=== PATIENT | female | born 1985 | race Caucasian/White ===

== ENCOUNTER 2024-03-06 12:26 | Inpatient (IN) | payer MEDICAID ==
[~2024-03-06] VITALS: Ht 165.1 cm; Wt 79.8 kg
[2024-03-06] MEDS: SODIUM CHLORIDE 0.9% 500 ML IVB ONE (13:00)
[2024-03-06 13:18] LABS: Urine Bacteria None Seen /hpf (None Seen)
[2024-03-06 13:20] LABS: Basophils # (auto) 0.1 10 ^3/uL (0-0.2); Basophils % (auto) 0.7 % (0.0-2.0); Eosinophils # (auto) 0.1 10 ^3/uL (0-0.8); Eosinophils % (auto) 0.8 % (0.0-7.0); Hematocrit 41.2 % (36.0-46.0); Hemoglobin 14.3 g/dL (12.2-16.2); Lymphocytes # (auto) 2.6 10 ^3/uL (0.4-5.4); Lymphocytes % (auto) 28.9 % (10.0-50.0); Mean Corpuscular Hemoglobin 33.9 pg (28.0-32.0); Mean Corpuscular Hgb Conc. 34.6 g/dL (32.0-36.0); Mean Corpuscular Volume 97.9 fL (80.0-100.0); Monocytes # (auto) 0.7 10 ^3/uL (0-1.3); Monocytes % (auto) 8.3 % (0.0-12.0); Neutrophils # (auto) 5.5 10 ^3/uL (1.6-8.6); Neutrophils % (auto) 61.3 % (37.0-80.0); Platelet Count (auto) 296 10^3/uL (140-450); Red Blood Cells 4.21 10^6/uL (4.0-5.20); Red Cell Distribution Width 12.8 % (11.8-14.3); White Blood Cell 8.9 10^3/uL (4.4-10.8)
[2024-03-06 13:34] LABS: Urine Blood Negative /uL (Negative); Urine Clarity Clear (Clear); Urine Color Light-Yellow (Yellow); Urine Protein, UAD Negative (Negative); Urine Specific Gravity 1.017 (1.001-1.035); Urine Urobilinogen Normal (Negative); Urine WBC 1 /hpf (0 - 5)
[2024-03-06 13:36] LABS: Alanine Aminotransferase 17 U/L (7-40); Albumin 4.7 g/dL (3.2-4.8); Alkaline Phosphatase 88 U/L (46-116); Anion Gap 6 (5-15); Aspartate Aminotransferase 22 U/L (13-40); BUN/Creatinine Ratio 16.7 (10.0-20.0); Blood Urea Nitrogen 13 mg/dL (9-23); Calcium 9.8 mg/dL (8.7-10.4); Carbon Dioxide 24 mmol/L (20-31); Chloride 112 mmol/L (98-107); Glucose 98 mg/dL (74-106); Potassium 4.1 mmol/L (3.5-5.1); Sodium 142 mmol/L (136-145)
[2024-03-06 13:37] LABS: Bilirubin, Total 0.5 mg/dL (0.2-1.0); Total Protein 7.3 g/dL (5.7-8.2)
[2024-03-06] MEDS: PROCHLORPERAZINE EDISYLATE 5 MG/ML 2ML VIAL IV ONE (13:56)
[2024-03-06] MEDS: PANTOPRAZOLE 40 MG/10 ML VIAL INJ IV ONE (13:56)
[2024-03-06] MEDS: MORPHINE SULFATE 4 MG/ML SYR/VIAL IV ONE ×2 (13:57→16:37)
[2024-03-06 14:01] LABS: Lipase 39 U/L (12-53)
[2024-03-06] MEDS: SODIUM CHLORIDE 0.9% 1,000 ML IV ONE (20:08)
[2024-03-06 21:00] VITALS: BP 98/60; PULSE 80; RESP 16; TEMP 98.2; O2SAT 93
[2024-03-06 21:02] VITALS: BP 98/60; PULSE 80; RESP 16; TEMP 98.2; O2SAT 93
[2024-03-06] MEDS: MORPHINE SULFATE INJ 2 MG/ml SYRG IV PRN (21:30)
[2024-03-06] MEDS: ONDANSETRON HCL 4 MG/2 ML VIAL IV PRN (22:07)
[2024-03-07] MEDS: MELATONIN 5 MG TAB PO SCH (00:30)
[2024-03-07 01:00] VITALS: BP 119/72; PULSE 85; RESP 18; TEMP 97.9; O2SAT 96
[2024-03-07 05:00] VITALS: BP 92/55; PULSE 68; RESP 18; TEMP 97.6; O2SAT 92
[2024-03-07] MEDS ORDERED: MELA3TAB27 PO (05:32)
[2024-03-07] MEDS ORDERED: ACET-1881 PO (05:32)
[2024-03-07] MEDS ORDERED: IBUP1TAB4 PO (05:32)
[2024-03-07 06:25] LABS: Basophils # (auto) 0 10 ^3/uL (0-0.2); Basophils % (auto) 0.6 % (0.0-2.0); Eosinophils # (auto) 0.1 10 ^3/uL (0-0.8); Eosinophils % (auto) 1.5 % (0.0-7.0); Hematocrit 37.6 % (36.0-46.0); Hemoglobin 12.7 g/dL (12.2-16.2); Lymphocytes # (auto) 2.7 10 ^3/uL (0.4-5.4); Lymphocytes % (auto) 37.1 % (10.0-50.0); Mean Corpuscular Hemoglobin 33.2 pg (28.0-32.0); Mean Corpuscular Hgb Conc. 33.7 g/dL (32.0-36.0); Mean Corpuscular Volume 98.6 fL (80.0-100.0); Monocytes # (auto) 0.8 10 ^3/uL (0-1.3); Monocytes % (auto) 11.1 % (0.0-12.0); Neutrophils # (auto) 3.6 10 ^3/uL (1.6-8.6); Neutrophils % (auto) 49.7 % (37.0-80.0); Nucleated Red Blood Cells % 0.1 %; Platelet Count (auto) 232 10^3/uL (140-450); Red Blood Cells 3.81 10^6/uL (4.0-5.20); Red Cell Distribution Width 13.1 % (11.8-14.3); White Blood Cell 7.2 10^3/uL (4.4-10.8)
[2024-03-07 06:39] LABS: Chloride 112 mmol/L (98-107); Potassium 4.2 mmol/L (3.5-5.1); Sodium 141 mmol/L (136-145)
[2024-03-07 06:40] LABS: Anion Gap 3 (5-15); Calcium 8.9 mg/dL (8.7-10.4); Carbon Dioxide 26 mmol/L (20-31)
[2024-03-07 06:45] LABS: BUN/Creatinine Ratio 12.3 (10.0-20.0); Blood Urea Nitrogen 9 mg/dL (9-23); Glucose 90 mg/dL (74-106)
[2024-03-07 09:00] VITALS: BP 102/58; PULSE 79; RESP 17; TEMP 97.6; O2SAT 99
[2024-03-07] MEDS: PANTOPRAZOLE 40 MG/10 ML VIAL INJ IV SCH (09:22)
[2024-03-07 13:00] VITALS: BP 93/55; PULSE 70; RESP 16; TEMP 98; O2SAT 97
[2024-03-07 18:37] VITALS: BP 107/77; PULSE 66; RESP 17; TEMP 97.7; O2SAT 96
[2024-03-07] MEDS: KETOROLAC TROMETH 30 MG/ML 1ML VIAL IV PRN (18:45)
[2024-03-07 21:00] VITALS: BP_SYST 101; BP_SYST 127; BP_DIAS 41; BP_DIAS 56; PULSE 69; PULSE 73; RESP 18; RESP 20; TEMP 97.5; TEMP 97.9; O2SAT 95; O2SAT 99
[2024-03-07] MEDS: HYOSCYAMINE SULF 0.125 MG ODT TAB PO SCH (21:13)
[2024-03-08 05:00] VITALS: BP 116/60; PULSE 91; RESP 18; TEMP 97.7; O2SAT 98
[2024-03-08] MEDS: SODIUM CHLORIDE 0.9% 500 ML IV ONE (06:32)
[2024-03-08] MEDS: ASPirin 81 mg TAB PO ONE (06:32)
[2024-03-08 08:00] VITALS: RESP 16
[2024-03-08 08:59] VITALS: BP 103/70; PULSE 57; RESP 20; TEMP 97.8; O2SAT 97
[2024-03-08 09:00] LABS: LDL Cholesterol 68 mg/dL (< 100); Triglycerides 76 mg/dL (< 150)
[2024-03-08 09:01] LABS: Cholesterol 122 mg/dL (< 200)
[2024-03-08 09:02] LABS: HDL Cholesterol 49 mg/dL (40-59)
[2024-03-08 13:00] VITALS: BP 103/51; PULSE 59; RESP 20; TEMP 97.9; O2SAT 97
[2024-03-08] MEDS ORDERED: ACETAMINOPHEN 325 MG TAB PO PRN (14:30)
[2024-03-08] MEDS ORDERED: IBUP1TAB4 PO (14:58)
[2024-03-08] MEDS ORDERED: DICY10CA PO (14:58)
[2024-03-08] MEDS: DICYCLOMINE HCL 10 MG CAP PO ONE (15:06)
[2024-03-08 15:07] VITALS: TEMP 98.7
[2024-03-08] MEDS: IBUPROFEN 600 MG TAB PO ONE (15:07)
== END 2024-03-08 15:42 | disposition home or self-care (01) | DRG 254 ==
LOC: ER 12:26 → OVERFLOW 19:10 → CENTRAL 20:55 → TELE-CENTR 03-08 07:10
PROVIDERS: ADMIT Hospitalist; ATTEND Hospitalist
DX: K58.9 Irritable bowel syndrome, unspecified (principal); F17.210 Nicotine dependence, cigarettes, uncomplicated; N80.9 Endometriosis, unspecified; Z88.0 Allergy status to penicillin; Z82.49 Family history of ischemic heart disease and other diseases of the circulatory system; Z90.710 Acquired absence of both cervix and uterus; Z90.49 Acquired absence of other specified parts of digestive tract
CPT/HCPCS: 36415; 74176; 76705; 80048; 80053; 80061; 81001; 83690; 84484; 85025; 93005; 93306; G0378; J1885; J2405; J2470